=== PATIENT | female | born 1960 | race Caucasian/White ===

== ENCOUNTER 2020-07-07 16:50 | Outpatient (REF) | payer OTHER, SELFPAY | END 2020-07-07 16:51 | disposition home or self-care (01) | LOC: HO.LAB 16:50 | PROVIDERS: PCP Internal Medicine; Visit Provider Internal Medicine | DX: Z20.822 Contact with and (suspected) exposure to COVID-19 (principal) | CPT/HCPCS: 36415; C9803; U0003 ==

== ENCOUNTER 2021-05-26 15:33 | Outpatient (REF) | payer OTHER, SELFPAY ==
[2021-05-26 16:01] LABS: COVID-19 Test Negative (Negative)
== END 2021-05-26 15:34 | disposition home or self-care (01) ==
LOC: HO.LAB 15:33
PROVIDERS: Visit Provider Internal Medicine
DX: Z20.822 Contact with and (suspected) exposure to COVID-19 (principal)
CPT/HCPCS: 36415; 87635; C9803